=== PATIENT | male | born 1990 | race Caucasian/White ===

== ENCOUNTER 2017-11-06 20:17 | Emergency (ER) | payer BC ==
[2017-11-06 20:51] VITALS: BP 142/86
--- NOTE | 2017-11-06 21:04 | EDM.PDOC ---
ED HPI GENERAL MEDICAL PROBLEM - General Chief Complaint: ENT Problem Stated Complaint: EARACHE Time Seen by Provider: 11/06/17 21:04 History Limitations: Reports: No Limitations - History of Present Illness INITIAL COMMENTS - FREE TEXT/NARRATIVE: Nigel presents today for complaints of worsening right ear pain after going to the clinic today. He reports his ear canal is swollen and he has pain with radiation to the right side of his face. Treatments PRECISION DYER: Reports: Acetaminophen right ear pain Pain Score (Numeric/FACES): 8 - Related Data Allergies Allergy/AdvReac Type Severity Reaction Status Date / Time amoxicillin Allergy Rash Verified 11/06/17 20:52 Home Meds: Home Meds Citalopram [Citalopram HBr] 10 mg PO DAILY 10/04/14 [History] ALPRAZolam [Xanax] 0.5 mg PO DAILY PRN 06/28/16 [History] Past Medical History Psychiatric History: Reports: Anxiety Dermatologic History: Reports: Eczema - Infectious Disease History Infectious Disease History: Reports: Chicken Pox - Past Surgical History GI Surgical History: Reports: Hernia Repair/Other Social & Family History - Tobacco Use Smoking Status *Q: Never Smoker - Caffeine Use Caffeine Use: Reports: Coffee - Recreational Drug Use Recreational Drug Use: No ED ROS ENT - Review of Systems Review Of Systems: See Below Constitutional: Denies: Fever, Chills HEENT: Reports: Ear Pain, Hearing Loss, Other (Right ear pain and edema). Denies: Dental Pain, Ear Discharge, Eye Pain, Nose Pain, Sinus Problem, Throat Pain, Throat Swelling Respiratory: Denies: Shortness of Breath, Wheezing, Cough, Sputum Cardiovascular: Reports: No Symptoms Endocrine: Reports: No Symptoms GI/Abdominal: Reports: No Symptoms : Reports: No Symptoms Musculoskeletal: Reports: No Symptoms Skin: Reports: Other (Edema tp right ear canal) Neurological: Reports: No Symptoms Psychiatric: Reports: No Symptoms Hematologic/Lymphatic: Reports: No Symptoms Immunologic: Reports: No Symptoms ED EXAM, ENT - Physical Exam Exam: See Below Text/Narrative:: Nigel presents today for complaints of right sided ear pain with radiation to right side of face and head. He denies fever, chills, nausea, vomiting or other concerns. He reports he does suffer from eczema, has chronic pruritis of ear canals. Exam Limited By: No Limitations General Appearance: Alert, WD/WN, Mild Distress Eye Exam: Bilateral Eye: EOMI, Normal Inspection, PERRL Ears: Other (Left ear and TM normal, liriano with good reflection of light. Left ear has pain with movement of pinna, auricular tenderness, pain radiating to righ jaw, limited ROM to mouth. Significant edema to canal, no discharge noted. ) Nose: Normal Inspection, Normal Mucousa, No Blood Mouth/Throat: Normal Inspection, Normal Gums, Normal Lips, Normal Oropharynx, Normal Teeth Head: Atraumatic, Normocephalic Neck: Normal Inspection, Supple, Non-Tender, Full Range of Motion. No: Lymphadenopathy (R), Lymphadenopathy (L) Respiratory/Chest: No Respiratory Distress, Lungs Clear, Normal Breath Sounds, No Accessory Muscle Use, Chest Non-Tender Cardiovascular: Normal Peripheral Pulses, Regular Rate, Rhythm, No Edema, No Murmur, No Rub Back: Normal Inspection, Full Range of Motion. No: CVA Tenderness (R), CVA Tenderness (L) Extremities: Normal Inspection, Normal Range of Motion, Non-Tender, No Pedal Edema, Normal Capillary Refill Neurological: Alert, Oriented, CN II-XII Intact, Normal Cognition, Normal Gait, No Motor/Sensory Deficits Psychiatric: Normal Affect, Normal Mood Skin: Warm, Dry, Intact, Normal Color, No Rash Lymphatic: No Adenopathy ED ENT PROCEDURES - Additional/Other Procedure(s) Other (Free Text) Procedure(s): Ear wick placed to right ear, patient tolerated well. Cortisporin drops applied. Course - Vital Signs Last Recorded V/S: Last Vital Signs Temp 36.7 C 11/06/17 20:50 Pulse 101 H 11/06/17 20:50 Resp 17 11/06/17 20:50 BP 142/86 H 11/06/17 20:50 Pulse Ox 98 11/06/17 20:50 - Orders/Labs/Meds Meds: Medications Discontinued Medications Generic Name Dose Route Start Last Admin Trade Name Hossein PRN Reason Stop Dose Admin Hydrocodone Bitart/Acetaminophen 1 tab 11/06/17 21:13 11/06/17 21:23 [place] 325-5 Mg PO 11/06/17 21:14 1 tab ONETIME ONE Administration Departure - Departure Time of Disposition: 21:57 Disposition: Home, Self-Care 01 Condition: Good Clinical Impression: Otitis externa - Discharge Information Instructions: Otitis Externa, [id number] Referrals: Maicol Conteh PA [Primary Care Provider] - Forms: ED Department Discharge Additional Instructions: You have been evaluated and treated for otitis externa of the right ear. Use the cortisporin drops 3 drops as directed. Take ciprofloxacin 500mg by mouth as directed. Take acetaminophen and ibuprofen as needed for pain. You have been prescribed a prescription for tramadol 50mg, one tablet PO three times a day as needed #6 for uncontrolled pain. Keep the ear wick in place, it will fall out on its own. Do not put anything in your right ear. Follow up with your primary provider in 14 days for a recheck of your ear. Return to the emergency room for worsening, issues or concerns. - Assessment/Plan Assessment:: Otitis externa Plan: Patient evaluated and treated for otitis externa of the right ear. Use previously prescribed ear drops as directed. Add the cortisporin drops 3 drops as directed. Take ciprofloxacin 500mg by mouth as directed. Take acetaminophen and ibuprofen as needed for pain. Patient prescribed a prescription for tramadol 50mg, one tablet PO three times a day as needed #6 for uncontrolled pain. Keep the ear wick in place, it will fall out on its own. Do not put anything in right ear. Follow up with primary provider in 14 days for a recheck of ear. Return to the emergency room for worsening, issues or concerns.
[2017-11-06] MEDS ORDERED: Acetaminophen/HYDROcodone 325-5 MG Tab PO ONE (21:13)
== END 2017-11-06 22:08 | disposition home or self-care (01) ==
LOC: JP.ED 20:17
DX: H60.91 Unspecified otitis externa, right ear (principal); Z88.1 Allergy status to other antibiotic agents; Z79.899 Other long term (current) drug therapy; F41.9 Anxiety disorder, unspecified
CPT/HCPCS: 99283; A9270

== ENCOUNTER 2017-11-07 10:44 | Inpatient (IN) | payer BC ==
[2017-11-07] MEDS ORDERED: methylPREDNISolone Sodium Succinate 125 MG/2 ML SDV IVPUSH ONE ×2 (11:30→12:00)
[2017-11-07] MEDS ORDERED: Ketorolac 30 MG/ML SDV IVPUSH ONE ×2 (11:30→12:00)
[2017-11-07] MEDS ORDERED: cefTAZidime 1 GM in Sodium Chloride 0.9% 50 ML IV ONE ×2 (11:32→12:00)
[2017-11-07] MEDS ORDERED: Sodium Chloride 0.9% 1,000 ML IV SCH (11:45)
[2017-11-07] MEDS ORDERED: HYDROmorphone 0.5 MG/0.5 ML Syringe IVPUSH ONE (13:05)
--- NOTE | 2017-11-07 13:29 | PCM.HP ---
H&P History of Present Illness - General Date of Service: 11/07/17 Admit Problem/Dx: Admission Diagnosis/Problem Admission Diagnosis/Problem Cellulitis Source of Information: Patient, Provider, RN Notes Reviewed History Limitations: Reports: No Limitations - History of Present Illness Initial Comments - Free Text/Narative: Mr. Santiago is a 27-year-old gentleman who is admitted through the emergency department with severe otitis media of his right ear and associated cellulitis. He has a history of eczema and was scratching in his ear last week with a Q- tip. Since then has had some inflammation in the ear and progressive pain. He was seen and evaluated in the clinic and started on Cortisporin optic drops. Unfortunately despite this he had progression of symptoms and was seen and evaluated in the emergency department yesterday. He was given oral ciprofloxacin , but over the past 12 hours there is been progression of pain and inflammation surrounding the ear. On evaluation today the ear canal is totally closed off. Findings and evaluation reviewed with ENT on-call from [facility], they recommended IV antibiotics and consider MRI in a.m. if symptoms worsen. Right Ear Pain Score (Numeric/FACES): 5 - Related Data Allergies/Adverse Reactions: Allergies Allergy/AdvReac Type Severity Reaction Status Date / Time amoxicillin Allergy Rash Verified 11/07/17 11:05 Home Medications: Home Meds Citalopram [Citalopram HBr] 10 mg PO DAILY 10/04/14 [History] ALPRAZolam [Xanax] 0.5 mg PO DAILY PRN 06/28/16 [History] Ciprofloxacin HCl [Cipro] 500 mg PO BID 11/07/17 [History] Past Medical History Psychiatric History: Reports: Anxiety Dermatologic History: Reports: Eczema - Infectious Disease History Infectious Disease History: Reports: Chicken Pox - Past Surgical History GI Surgical History: Reports: Hernia Repair/Other Social & Family History - Tobacco Use Smoking Status *Q: Never Smoker - Caffeine Use Caffeine Use: Reports: Coffee - Recreational Drug Use Recreational Drug Use: No H&P Review of Systems - Review of Systems: Review Of Systems: See Below General: Reports: Fever, Chills, Weakness, Diaphoresis HEENT: Reports: Ear Pain. Denies: Dysphasia, Eye Pain, Headaches, Sore Throat Pulmonary: Reports: No Symptoms Cardiovascular: Reports: No Symptoms Gastrointestinal: Reports: No Symptoms Genitourinary: Reports: No Symptoms Musculoskeletal: Reports: No Symptoms Skin: Reports: No Symptoms Psychiatric: Reports: No Symptoms Neurological: Reports: No Symptoms Hematologic/Lymphatic: Reports: No Symptoms Immunologic: Reports: No Symptoms Exam - Exam Exam: See Below - Vital Signs Vital Signs: Last Vital Signs Temp 100.3 F 11/07/17 12:55 Pulse 102 H 11/07/17 12:55 Resp 16 11/07/17 12:55 BP 112/62 11/07/17 12:55 Pulse Ox 96 11/07/17 12:55 Weight: 222 lb 10.67 oz - Exam General: Alert, Oriented, Cooperative, Moderate Distress HEENT: Conjunctiva Clear, Mucosa Moist & [place], Normal Nasal Septum, Posterior Pharynx Clear, Pupils Equal, Other (Inflammation right face surrounding the ear , ear canal is totally closed off from inflammation) Neck: Supple, Trachea Midline, +2 Carotid Pulse wo Bruit Lungs: Clear to Auscultation, Normal Respiratory Effort Cardiovascular: Regular Rate, Regular Rhythm, Normal S1, Normal S2. No: Systolic Murmur, Diastolic Murmur GI/Abdominal Exam: Soft, Non-Tender, No Organomegaly, No Distention Back Exam: Normal Inspection, Full Range of Motion Extremities: Non-Tender, No Pedal Edema Skin: Warm, Dry, Intact Neurological: Cranial Nerves Intact, Strength Equal Bilateral, Normal Speech, Normal Tone, Sensation Intact. No: Focal Deficit Neuro Extensive - Mental Status: Alert, Oriented x3, Normal Mood/Affect, Normal Cognition, Memory Intact - Patient Data Lab Results Last 24 hrs: Laboratory Results - last 24 hr 11/07/17 11/07/17 Range/Units 12:16 12:16 WBC 14.1 H (4.5-11.0) K/uL RBC 5.35 (4.30-5.90) M/uL Hgb 15.8 H (12.0-15.0) g/dL Hct 46.0 (40.0-54.0) % MCV 86 (80-98) fL MCH 30 (27-31) pg MCHC 34 (32-36) % Plt Count 257 (150-400) K/uL Neut % (Auto) 89 H (36-66) % Lymph % (Auto) 4 L (24-44) % Bailey % (Auto) 8 H (2-6) % Eos % (Auto) 0 L (2-4) % Baso % (Auto) 0 (0-1) % Sodium 137 L (140-148) mmol/L Potassium 3.7 (3.6-5.2) mmol/L Chloride 102 (100-108) mmol/L Carbon Dioxide 24 (21-32) mmol/L Anion Gap 14.7 H (5.0-14.0) mmol/L BUN 15 (7-18) mg/dL Creatinine 1.1 (0.8-1.3) mg/dL Est Cr Clr Drug Dosing 115.20 mL/min Estimated GFR (MDRD) > 60 (>60) Glucose 91 (74-106) mg/dL Calcium 8.5 (8.5-10.1) mg/dL Result Diagrams: 11/07/17 12:16 11/07/17 12:16 *Q Meaningful Use (ADM) - VTE Risk Assess *Q Each Risk Factor Represents 1 Point: None Total Score 1 Point Risk Factors: 0 Each Risk Factor Represents 2 Points: None Total Score 2 Point Risk Factors: 0 Each Risk Factor Represents 3 Points: None Total Score 3 Point Risk Factors: 0 Each Risk Factor Represents 5 Points: None Total Score 5 Point Risk Factors: 0 Venous Thromboembolism Risk Factor Score *Q: 0 Problem List Initiated/Reviewed/Updated: Yes Orders Last 24hrs: Active Orders 24 hr Category Date Time Status Patient Status Manage Transfer [TRANSFER] Routine ADT 11/07/17 13:11 Active Sodium Chloride 0.9% [Normal Saline] 1,000 ml Med 11/07/17 11:45 Active IV ASDIRECTED Resuscitation Status Routine Resus Stat 11/07/17 13:15 Ordered Medication Orders Sodium Chloride (Normal Saline) 1,000 mls @ 250 mls/hr IV ASDIRECTED SAMANTHA Last Admin: 11/07/17 11:48 Dose: 250 mls/hr Assessment/Plan Comment:: ASSESSMENT AND PLAN CELLULITIS RIGHT FACE SECONDARY TO OTITIS EXTERNA-progressive symptoms despite appropriate therapy with drops and oral ciprofloxacin -IV fluids for hydration -Blood cultures pending -Pain medication as needed -Ceftazidime 1 g IV every 8 hours -Solu-Medrol 40 mg IV every 6 hours -Consider MRI in a.m. if no improvement or progression of symptoms MAINTENANCE ISSUES -DVT prophylaxis; not indicated -GI prophylaxis; not indicated -So catheter; not indicated -Nutrition; regular diet -Nicotine dependence; not required CODE STATUS-FULL CODE ADMISSION STATUS-patient will be admitted to inpatient status, expect at least a 2 night hospital stay for evaluation and management of problems as outlined above. At the time of this admission I do not reasonably expected evaluation and management of this problem will require more than a 96 hour hospital stay. DISPOSITION-anticipate discharge to home after the hospital stay. PRIMARY CARE PROVIDER-
[2017-11-07] MEDS ORDERED: Magnesium Hydroxide 400 MG/5 ML Susp 30 ML Cup PO PRN (13:51)
[2017-11-07] MEDS ORDERED: ALPRAZolam 0.5 MG Tab PO PRN (13:51)
[2017-11-07] MEDS ORDERED: Lactated Ringers 1,000 ML IV SCH (13:51)
[2017-11-07] MEDS ORDERED: Ondansetron 4 MG/2 ML SDV IV PRN (13:51)
[2017-11-07] MEDS ORDERED: Sodium Chloride 0.9% 10 ML Syringe FLUSH PRN (13:51)
[2017-11-07] MEDS: Acetaminophen 325 MG Tab PO PRN (15:14)
[2017-11-07] MEDS: Ciprofloxacin 0.3% Ophth Soln 5 ML Bottle EARRT SCH ×2 (16:05→20:12)
[2017-11-07] MEDS: HYDROmorphone 0.5 MG/0.5 ML Syringe IVPUSH PRN ×2 (17:00→22:38)
[2017-11-07] MEDS: methylPREDNISolone Sodium Succinate 40 MG/1 ML SDV IVPUSH SCH (17:58)
[2017-11-07] MEDS: Ibuprofen 600 MG Tab PO PRN (20:10)
[2017-11-07] MEDS: Lactated Ringers 1,000 ML IV SCH (20:11)
[2017-11-07] MEDS: cefTAZidime 1 GM in Sodium Chloride 0.9% 50 ML IV SCH (20:16)
[2017-11-07] MEDS: Citalopram 10 MG Tab PO SCH (22:35)
[2017-11-08] MEDS: Ciprofloxacin 0.3% Ophth Soln 5 ML Bottle EARRT SCH ×6 (00:11→19:43)
[2017-11-08] MEDS: methylPREDNISolone Sodium Succinate 40 MG/1 ML SDV IVPUSH SCH ×3 (00:12→11:18)
[2017-11-08] MEDS: cefTAZidime 1 GM in Sodium Chloride 0.9% 50 ML IV SCH ×3 (04:07→19:43)
[2017-11-08] MEDS: Lactated Ringers 1,000 ML IV SCH (04:12)
[2017-11-08] MEDS: Ibuprofen 600 MG Tab PO PRN ×3 (04:22→19:59)
[2017-11-08] MEDS: HYDROmorphone 0.5 MG/0.5 ML Syringe IVPUSH PRN (04:23)
[2017-11-08] MEDS: oxyCODONE 5 MG Tab PO PRN ×3 (07:30→19:58)
[2017-11-08] MEDS ORDERED: Citalopram 10 MG Tab PO SCH (09:00)
[2017-11-08] MEDS: Acetaminophen 325 MG Tab PO PRN (09:43)
--- NOTE | 2017-11-08 11:59 | PCM.PN ---
- General Info Date of Service: 11/08/17 Functional Status: Reports: Pain Controlled, Tolerating Diet - Review of Systems General: Reports: Fever HEENT: Reports: Ear Pain Systems Review Comment:: There were no acute events overnight. Right ear pain has diminished compared to yesterday. Swelling and erythema have improved. He did have low-grade fevers overnight but no high temperatures. White blood cell count is up a little today. In general he feels quite a bit better. - Patient Data Vitals - Most Recent: Last Vital Signs Temp 37.0 C 11/08/17 11:14 Pulse 80 11/08/17 11:14 Resp 14 11/08/17 11:14 BP 107/59 L 11/08/17 11:14 Pulse Ox 97 11/08/17 11:14 Weight - Most Recent: 101.968 kg I&O - Last 24 Hours: Intake & Output 11/07/17 11/08/17 11/08/17 22:59 06:59 14:59 Intake Total 237 1600 850 Output Total 400 850 450 Balance -163 750 400 Lab Results Last 24 Hours: Laboratory Results - last 24 hr 11/07/17 11/07/17 11/08/17 Range/Units 12:16 12:16 05:41 WBC 14.1 H 18.4 H (4.5-11.0) K/uL RBC 5.35 4.88 (4.30-5.90) M/uL Hgb 15.8 H 14.2 (12.0-15.0) g/dL Hct 46.0 42.6 (40.0-54.0) % MCV 86 87 (80-98) fL MCH 30 29 (27-31) pg MCHC 34 33 (32-36) % Plt Count 257 239 (150-400) K/uL Neut % (Auto) 89 H 96 H (36-66) % Lymph % (Auto) 4 L 2 L (24-44) % Sullivan % (Auto) 8 H 2 (2-6) % Eos % (Auto) 0 L 0 L (2-4) % Baso % (Auto) 0 0 (0-1) % Sodium 137 L (140-148) mmol/L Potassium 3.7 (3.6-5.2) mmol/L Chloride 102 (100-108) mmol/L Carbon Dioxide 24 (21-32) mmol/L Anion Gap 14.7 H (5.0-14.0) mmol/L BUN 15 (7-18) mg/dL Creatinine 1.1 (0.8-1.3) mg/dL Est Cr Clr Drug Dosing 115.20 mL/min Estimated GFR (MDRD) > 60 (>60) Glucose 91 (74-106) mg/dL Calcium 8.5 (8.5-10.1) mg/dL 11/08/17 Range/Units 05:41 WBC (4.5-11.0) K/uL RBC (4.30-5.90) M/uL Hgb (12.0-15.0) g/dL Hct (40.0-54.0) % MCV (80-98) fL MCH (27-31) pg MCHC (32-36) % Plt Count (150-400) K/uL Neut % (Auto) (36-66) % Lymph % (Auto) (24-44) % Sullivan % (Auto) (2-6) % Eos % (Auto) (2-4) % Baso % (Auto) (0-1) % Sodium 139 L (140-148) mmol/L Potassium 4.1 (3.6-5.2) mmol/L Chloride 106 (100-108) mmol/L Carbon Dioxide 22 (21-32) mmol/L Anion Gap 15.1 H (5.0-14.0) mmol/L BUN 15 (7-18) mg/dL Creatinine 0.9 (0.8-1.3) mg/dL Est Cr Clr Drug Dosing 140.81 mL/min Estimated GFR (MDRD) > 60 (>60) Glucose 157 H (74-106) mg/dL Calcium 8.4 L (8.5-10.1) mg/dL Med Orders - Current: Current Medications Acetaminophen (Tylenol) 650 mg PO Q4H PRN PRN Reason: Pain (Mild 1-3)/fever Last Admin: 11/08/17 09:43 Dose: 650 mg Alprazolam (Xanax) 0.5 mg PO DAILY PRN PRN Reason: Sleep Ciprofloxacin (Ciloxan 0.3% Ophth Soln) 0 ml EARRT Q4H SAMANTHA Last Admin: 11/08/17 11:17 Dose: 2 drop Citalopram Hydrobromide (Celexa) 10 mg PO BEDTIME [facility] Last Admin: 11/07/17 22:35 Dose: 10 mg Hydromorphone HCl (Dilaudid) 0.5 mg IVPUSH Q2H PRN PRN Reason: Pain Last Admin: 11/08/17 04:23 Dose: 0.5 mg Ceftazidime 1 gm/ Sodium (Chloride) 50 mls @ 100 mls/hr IV Q8H [facility] Last Admin: 11/08/17 11:46 Dose: 100 mls/hr Ibuprofen (Motrin) 600 mg PO Q6H PRN PRN Reason: Pain/Fever Last Admin: 11/08/17 04:22 Dose: 600 mg Magnesium Hydroxide (Milk Of Magnesia) 30 ml PO Q12H PRN PRN Reason: Constipation Ondansetron HCl (Zofran) 4 mg IV Q4H PRN PRN Reason: Nausea/Vomiting Oxycodone HCl (Oxycodone) 5 mg PO Q4H PRN PRN Reason: Pain (moderate 4-6) Last Admin: 11/08/17 07:30 Dose: 5 mg Prednisone (Prednisone) 20 mg PO BIDAC [facility] Senna/Docusate Sodium (Senna Plus) 1 tab PO BID PRN PRN Reason: Constipation Sodium Chloride (Saline Flush) 10 ml FLUSH ASDIRECTED PRN PRN Reason: Keep Vein Open Discontinued Medications Hydromorphone HCl (Dilaudid) 0.5 mg IVPUSH ONETIME ONE Stop: 11/07/17 13:06 Last Admin: 11/07/17 13:21 Dose: 0.5 mg Ceftazidime 1 gm/ Sodium (Chloride) 50 mls @ 100 mls/hr IV ONETIME ONE Stop: 11/07/17 12:29 Last Admin: 11/07/17 11:49 Dose: 100 mls/hr Sodium Chloride (Normal Saline) 1,000 mls @ 250 mls/hr IV ASDIRECTED [facility] Last Admin: 11/07/17 11:48 Dose: 250 mls/hr Lactated Ringer's (Ringers, Lactated) 1,000 mls @ 250 mls/hr IV ASDIRECTED [facility] Stop: 11/07/17 17:52 Lactated Ringer's (Ringers, Lactated) 1,000 mls @ 125 mls/hr IV ASDIRECTED [facility] Last Admin: 11/08/17 04:12 Dose: 125 mls/hr Ketorolac Tromethamine (Toradol) 30 mg IVPUSH ONETIME ONE Stop: 11/07/17 12:01 Last Admin: 11/07/17 11:52 Dose: 30 mg Methylprednisolone Sodium Succinate (Solu-Medrol) 125 mg IVPUSH ONETIME ONE Stop: 11/07/17 12:01 Last Admin: 11/07/17 11:49 Dose: 125 mg Methylprednisolone Sodium Succinate (Solu-Medrol) 40 mg IVPUSH Q6H [facility] Last Admin: 11/08/17 11:18 Dose: 40 mg - Exam Quality Assessment: No: Supplemental Oxygen General: Alert, Oriented, Cooperative, No Acute Distress HEENT: Mucous Membr. Moist/[place], Other (right ear is mildly swollen externally. Ear canal is patent but has significant swelling. No redness. Mild warmth of ear and surrounding area. ) Neck: Supple Lungs: Normal Respiratory Effort Psy/Mental Status: Alert, Normal Affect - Problem List Review Problem List Initiated/Reviewed/Updated: Yes - My Orders Last 24 Hours: My Active Orders 11/08/17 11:17 Convert IV to Saline Lock [OM.PC] Routine 11/08/17 16:30 predniSONE 20 mg PO BIDAC 11/09/17 05:00 CBC W/O DIFF,HEMOGRAM [HEME] Timed (1) - Plan Plan:: ASSESSMENT AND PLAN CELLULITIS RIGHT FACE SECONDARY TO OTITIS EXTERNA - progressive symptoms despite appropriate therapy with drops and oral ciprofloxacin as an outpatient but significant improvement overnight following admission. -Pain medication as needed -Ceftazidime 1 g IV every 8 hours -Transition steroids to prednisone -Consider MRI if no improvement or progression of symptoms MAINTENANCE ISSUES -DVT prophylaxis; not indicated -GI prophylaxis; not indicated -So catheter; not indicated -Nutrition; regular diet DISPOSITION - anticipate discharge to home after the hospital stay. Billy Chan M.D.
[2017-11-08] MEDS: predniSONE 20 MG Tab PO SCH (15:30)
[2017-11-08] MEDS: Citalopram 10 MG Tab PO SCH (20:00)
[2017-11-09] MEDS: Ciprofloxacin 0.3% Ophth Soln 5 ML Bottle EARRT SCH ×3 (00:37→09:07)
[2017-11-09] MEDS: cefTAZidime 1 GM in Sodium Chloride 0.9% 50 ML IV SCH ×2 (04:00→12:26)
[2017-11-09] MEDS: oxyCODONE 5 MG Tab PO PRN ×2 (07:37→12:25)
[2017-11-09] MEDS: Ibuprofen 600 MG Tab PO PRN (07:38)
[2017-11-09] MEDS: predniSONE 20 MG Tab PO SCH (07:40)
--- NOTE | 2017-11-09 11:48 | PCM.DCSUM1 ---
Discharge Summary - Hospital Course Brief History: 27-year-old male with history of eczema involving his auditory canals who presented with severe pain, redness and swelling of his right ear that was worsening despite outpatient antibiotic therapy. He was admitted for management of severe right-sided otitis externa. - Discharge Data Discharge Date: 11/09/17 Discharge Disposition: Home, Self-Care 01 Condition: Good - Discharge Diagnosis/Problem(s) (1) Otitis externa SNOMED Code(s): 0142889 ICD Code: H60.90 - UNSPECIFIED OTITIS EXTERNA, UNSPECIFIED EAR Status: Acute Qualifiers: Otitis externa type: other infective Chronicity: acute Laterality: right Qualified Code(s): H60.391 - Other infective otitis externa, right ear (2) Cellulitis of face SNOMED Code(s): 938206414 ICD Code: L03.211 - CELLULITIS OF FACE Status: Acute - Patient Summary/Data Hospital Course: Dandre presented to the emergency room with progressive right ear pain and swelling despite outpatient antibiotic therapy. Workup in the emergency room revealed a mild leukocytosis as well as evidence for significant swelling of the auditory canal and external ear. There is also concern for cellulitis surrounding the right ear. inventory specialist manager was consulted from [place] and he recommended IV antibiotics and an MRI if condition did not improve or if it got worse. He was admitted to the hospital and started on Ceftazidime as well as antibiotic drops placed in the auditory canal. overnight following admission his pain and swelling both improved. He did have low-grade fevers following admission. His white blood cell count did bump slightly but this was thought to possibly be related to the IV steroids. We elected to continue IV antibiotics for a second night to monitor for ongoing improvement given the severity of his infection at the time of presentation. On the second morning of admission which was the day of discharge the patient reported some increase in pain that morning but it had been improving after he had been up and about. He thought the swelling was a little bit worse but in general was feeling better. My examination suggested that the ear was doing much better. There was an area anterior to the ear over the jaw which was slightly more swollen than the day before but the redness, warmth and swelling had also improved significantly. His white blood cell count is stable but still mildly elevated. He has not had any fevers in the past 24 hours. I do believe he is safe for outpatient management at this time. We elected to utilize ciprofloxacin as well as cefdinir to cover the cellulitis. I did transition him to Tobradex eardrops which she will place in the auditory canal. I encouraged him to contact me with questions or concerns after hospital discharge. I don't believe he needs a referral to ENT at this time given his significant clinical improvement over the past 48 hours. We did not complete an MRI because of the above-mentioned clinical improvement. - Patient Instructions Diet: Regular Diet as Tolerated Activity: As Tolerated Driving: Do Not Drive (if taking pills ) Showering/Bathing: May Shower Notify Provider of: Fever, Increased Pain, Nausea and/or Vomiting Other/Special Instructions: 1. You were in the hospital for management of infection involving your right ear, ear canal as well as cellulitis surrounding the ear. Your condition has been improving with current antibiotic therapy. I recommend ongoing antibiotic therapy as listed below: --cefdinir 300 mg, take one cap twice daily for seven doses, your first dose is due tonight (new prescription). --ciprofloxacin 500 mg, take 1 tablet twice daily for 7 doses, your next dose is due tonight (existing prescription). --Tobrex eardrops, place 4 drops in your right ear 4 times daily until the bottle is empty. 2. To help control the pain associated with the infection I would recommend alternating ibuprofen 600 mg and acetaminophen 650 mg. You may take each of these medications up to 4 times daily as needed for pain. If you have severe pain you may utilize the small quantity of oxycodone provided. 3. If your condition does not continue to improve we may need to consider an MRI and/ or referral to an wave solder offbearer. 4. Please seek medical attention if you develop fever greater than 101, you develop severe pain in the right ear or if you have increasing redness, warmth or swelling of the right ear. - Discharge Plan Prescriptions/Med Rec: Cefdinir 300 mg PO BID #7 capsule Dexamethasone/Tobramycin [Tobradex Ophth Susp] 4 ml EARRT QID #1 bottle oxyCODONE 5 mg PO Q4H PRN #10 tablet PRN Reason: Pain (Moderate 4-6) Home Medications: Home Meds Citalopram [Citalopram HBr] 10 mg PO DAILY 10/04/14 [History] ALPRAZolam [Xanax] 0.5 mg PO DAILY PRN 06/28/16 [History] Ciprofloxacin HCl [Cipro] 500 mg PO BID 11/07/17 [History] Cefdinir 300 mg PO BID #7 capsule 11/09/17 [Rx] Dexamethasone/Tobramycin [Tobradex Ophth Susp] 4 ml EARRT QID #1 bottle [Rx] oxyCODONE 5 mg PO Q4H PRN #10 tablet 11/09/17 [Rx] Patient Handouts: Cefdinir capsules, Otitis Externa Referrals: PCP,None [Primary Care Provider] - (f/u as needed if symptoms do not continue to get better over the next few days) - Discharge Summary/Plan Comment DC Time >30 min.: No (25) - Patient Data Vitals - Most Recent: Last Vital Signs Temp 36.9 C 11/09/17 07:05 Pulse 74 11/09/17 07:05 Resp 16 11/09/17 07:05 BP 119/68 11/09/17 07:05 Pulse Ox 99 11/09/17 07:05 Weight - Most Recent: 101.968 kg I&O - Last 24 hours: Intake & Output 11/08/17 11/09/17 11/09/17 22:59 06:59 14:59 Intake Total 400 940 Balance 400 940 Lab Results - Last 24 hrs: Laboratory Results - last 24 hr 11/09/17 Range/Units 05:00 WBC 18.9 H (4.5-11.0) K/uL RBC 4.58 (4.30-5.90) M/uL Hgb 13.3 (12.0-15.0) g/dL Hct 40.2 (40.0-54.0) % MCV 88 (80-98) fL MCH 29 (27-31) pg MCHC 33 (32-36) % Plt Count 242 (150-400) K/uL MARTINE Results - Last 24 hrs: Microbiology 11/07/17 14:10 Aerobic Blood Culture - Preliminary Blood - Arm, Right NO GROWTH AFTER 1 DAY Anaerobic Blood Culture - Preliminary NO GROWTH AFTER 1 DAY 11/07/17 14:00 Aerobic Blood Culture - Preliminary Blood - Arm, Left NO GROWTH AFTER 1 DAY Anaerobic Blood Culture - Preliminary NO GROWTH AFTER 1 DAY Med Orders - Current: Current Medications Acetaminophen (Tylenol) 650 mg PO Q4H PRN PRN Reason: Pain (Mild 1-3)/fever Last Admin: 11/08/17 09:43 Dose: 650 mg Alprazolam (Xanax) 0.5 mg PO DAILY PRN PRN Reason: Sleep Citalopram Hydrobromide (Celexa) 10 mg PO BEDTIME [facility] Last Admin: 11/08/17 20:00 Dose: 10 mg Hydromorphone HCl (Dilaudid) 0.5 mg IVPUSH Q2H PRN PRN Reason: Pain Last Admin: 11/08/17 04:23 Dose: 0.5 mg Ceftazidime 1 gm/ Sodium (Chloride) 50 mls @ 100 mls/hr IV Q8H [facility] Last Admin: 11/09/17 04:00 Dose: 100 mls/hr Ibuprofen (Motrin) 600 mg PO Q6H PRN PRN Reason: Pain/Fever Last Admin: 11/09/17 07:38 Dose: 600 mg Magnesium Hydroxide (Milk Of Magnesia) 30 ml PO Q12H PRN PRN Reason: Constipation Ondansetron HCl (Zofran) 4 mg IV Q4H PRN PRN Reason: Nausea/Vomiting Oxycodone HCl (Oxycodone) 5 mg PO Q4H PRN PRN Reason: Pain (moderate 4-6) Last Admin: 11/09/17 07:37 Dose: 5 mg Prednisone (Prednisone) 20 mg PO BIDAC [facility] Last Admin: 11/09/17 07:40 Dose: 20 mg Senna/Docusate Sodium (Senna Plus) 1 tab PO BID PRN PRN Reason: Constipation Sodium Chloride (Saline Flush) 10 ml FLUSH ASDIRECTED PRN PRN Reason: Keep Vein Open Tobramycin/Dexamethasone (Tobradex Ophth Susp) 0 ml EARRT QID [facility] Discontinued Medications Ciprofloxacin (Ciloxan 0.3% Ophth Soln) 0 ml EARRT Q4H [facility] Last Admin: 11/09/17 09:07 Dose: 2 drop Hydromorphone HCl (Dilaudid) 0.5 mg IVPUSH ONETIME ONE Stop: 11/07/17 13:06 Last Admin: 11/07/17 13:21 Dose: 0.5 mg Ceftazidime 1 gm/ Sodium (Chloride) 50 mls @ 100 mls/hr IV ONETIME ONE Stop: 11/07/17 12:29 Last Admin: 11/07/17 11:49 Dose: 100 mls/hr Sodium Chloride (Normal Saline) 1,000 mls @ 250 mls/hr IV ASDIRECTED [facility] Last Admin: 11/07/17 11:48 Dose: 250 mls/hr Lactated Ringer's (Ringers, Lactated) 1,000 mls @ 250 mls/hr IV ASDIRECTED [facility] Stop: 11/07/17 17:52 Lactated Ringer's (Ringers, Lactated) 1,000 mls @ 125 mls/hr IV ASDIRECTED [facility] Last Admin: 11/08/17 04:12 Dose: 125 mls/hr Ketorolac Tromethamine (Toradol) 30 mg IVPUSH ONETIME ONE Stop: 11/07/17 12:01 Last Admin: 11/07/17 11:52 Dose: 30 mg Methylprednisolone Sodium Succinate (Solu-Medrol) 125 mg IVPUSH ONETIME ONE Stop: 11/07/17 12:01 Last Admin: 11/07/17 11:49 Dose: 125 mg Methylprednisolone Sodium Succinate (Solu-Medrol) 40 mg IVPUSH Q6H [facility] Last Admin: 11/08/17 11:18 Dose: 40 mg - Exam Quality Assessment: Denies: Supplemental Oxygen General: Reports: Alert, Oriented, Cooperative, No Acute Distress HEENT: Reports: Mucous Membr. Moist/Lester, Other (Mild swelling of auditory canal but the canal is patent. There is no erythema or drainage involving the ear. No evidence for active eczema. Minimal swelling anterior to right ear. No redness, warmth or swelling involving the ear or the area immediately adjacent to the year) Lungs: Reports: Normal Respiratory Effort *Q Meaningful Use (DIS) - VTE *Q VTE Pharmacological Contraindications *Q: Not Candidate LT Anticoag
[2017-11-09] MEDS ORDERED: Dexamethasone/Tobramycin 0.1-0.3% Ophth Susp 2.5 ML Bottle EARRT SCH (12:00)
[2017-11-09 12:14] VITALS: BP 122/71
== END 2017-11-09 13:29 | disposition home or self-care (01) | DRG 115 ==
LOC: JP.ED 10:44 → JP.MS 13:31
PROVIDERS: ADMIT Hospitalist; ATTEND Internal Medicine
DX: H60.8X1 Other otitis externa, right ear (principal); L03.211 Cellulitis of face; F41.9 Anxiety disorder, unspecified; L30.8 Other specified dermatitis; Z88.1 Allergy status to other antibiotic agents
CPT/HCPCS: 36415; 80048; 85025; 85027; 87040; 96361; 96365; 96375; 99284-25; A9270-GY; J0713; J1170; J1885; J2920; J2930; J7040; J7050; J7120

== ENCOUNTER 2020-02-29 13:45 | Emergency (ER) | payer BC ==
[2020-02-29] MEDS ORDERED: Alum Hydrox/Mag Hydrox/Simeth 15 ML, Lidocaine 2% 15 ML PO ONE ×2 (14:46)
--- NOTE | 2020-02-29 15:03 | EDM.PDOC ---
ED HPI GENERAL MEDICAL PROBLEM - General Chief Complaint: Chest Pain Stated Complaint: CHEST PAIN Time Seen by Provider: 02/29/20 15:02 - History of Present Illness INITIAL COMMENTS - FREE TEXT/NARRATIVE: Patient presents to the emergency department with epigastric pain over the past few days on and off. He says he has been under little bit of stress lately and he is on a little bit of a different diet than he is used to. He denies any shortness of breath and he denies any cough or fever or chills. He denies any exertional chest pains. He says the pain is in the middle of his chest and it comes and goes. Chest Pain Score (Numeric/FACES): 4 - Related Data Allergies Allergy/AdvReac Type Severity Reaction Status Date / Time amoxicillin Allergy Rash Verified 02/29/20 14:06 Home Meds: Home Meds Citalopram [Citalopram HBr] 10 mg PO DAILY 10/04/14 [History] Cetirizine [ZyrTEC] 10 mg PO DAILY 02/29/20 [History] Past Medical History HEENT History: Reports: Allergic Rhinitis Psychiatric History: Reports: Anxiety Dermatologic History: Reports: Eczema - Infectious Disease History Infectious Disease History: Reports: Chicken Pox - Past Surgical History GI Surgical History: Reports: Hernia Repair/Other Social & Family History - Family History Family Medical History: Noncontributory - Tobacco Use Smoking Status *Q: Never Smoker - Caffeine Use Caffeine Use: Reports: Coffee - Alcohol Use Days Per Week of Alcohol Use: 5 Number of Drinks Per Day: 3 Total Drinks Per Week: 15 - Recreational Drug Use Recreational Drug Use: No ED ROS GENERAL - Review of Systems Review Of Systems: Comprehensive ROS is negative, except as noted in HPI. ED EXAM, GENERAL - Physical Exam Exam: See Below Exam Limited By: No Limitations General Appearance: Alert Nose: Normal Inspection Neck: Normal Inspection Respiratory/Chest: No Respiratory Distress Cardiovascular: Normal Peripheral Pulses GI/Abdominal: Normal Bowel Sounds Back Exam: Normal Inspection Extremities: Normal Inspection Neurological: Alert, Oriented Skin Exam: Warm Course - Vital Signs Text/Narrative:: Patient did well here in the ER is a normal EKG and normal troponin and I feel since his pain is been going on a few days I feel comfortable sending him out with instructions for nonspecific chest pain he is to follow-up with family doctor and if this continues get an outpatient stress test Last Recorded V/S: Last Vital Signs Temp 97 F 02/29/20 14:02 Pulse 97 02/29/20 15:13 Resp 21 H 02/29/20 15:13 BP 129/85 02/29/20 15:13 Pulse Ox 97 02/29/20 15:13 - Orders/Labs/Meds Orders: Active Orders 24 hr Category Date Time Status EKG Documentation Completion [RC] ASDIRECTED Care 02/29/20 14:46 Active EKG 12 Lead [EK] Routine Ther 02/29/20 14:46 Ordered Labs: Laboratory Tests 02/29/20 Range/Units 14:55 Troponin I < 0.017 (0.000-0.056) ng/mL Meds: Medications Discontinued Medications Generic Name Dose Route Start Last Admin Trade Name Freq PRN Reason Stop Dose Admin Al Hydroxide/Mg Hydroxide 15 0 ml 02/29/20 14:46 02/29/20 14:55 ml/ Lidocaine HCl 15 ml PO 02/29/20 14:47 30 ml ONETIME ONE Administration Departure - Departure Time of Disposition: 15:26 Disposition: Home, Self-Care 01 Condition: Fair Clinical Impression: Atypical chest pain - Discharge Information Instructions: Nonspecific Chest Pain, Adult Referrals: PCP,None [Primary Care Provider] - Forms: ED Department Discharge Sepsis Event Note (ED) - Evaluation Sepsis Screening Result: No Definite Risk - Focused Exam Vital Signs: Vital Signs Temp Pulse Resp BP Pulse Ox 02/29/20 15:13 97 21 H 129/85 97 02/29/20 14:29 89 14 118/83 95 02/29/20 14:02 97 F 106 H 18 114/87 96 - My Orders Last 24 Hours: My Active Orders 02/29/20 14:46 EKG Documentation Completion [RC] ASDIRECTED EKG 12 Lead [EK] Routine - Assessment/Plan Last 24 Hours: My Active Orders 02/29/20 14:46 EKG Documentation Completion [RC] ASDIRECTED EKG 12 Lead [EK] Routine
[2020-02-29 15:14] VITALS: BP 129/85; PULSE 97
== END 2020-02-29 15:43 | disposition home or self-care (01) ==
LOC: JP.ED 13:45
DX: R07.89 Other chest pain (principal); F41.9 Anxiety disorder, unspecified; Z88.1 Allergy status to other antibiotic agents; Z79.899 Other long term (current) drug therapy
CPT/HCPCS: 36415; 84484; 93005; 99285; A9270; 93010

== ENCOUNTER 2020-06-01 16:06 | Emergency (ER) | payer BC ==
[2020-06-01 16:36] VITALS: BP 128/85; PULSE 88
--- NOTE | 2020-06-01 16:42 | EDM.PDOC ---
ED HPI GENERAL MEDICAL PROBLEM - General Chief Complaint: Laceration Stated Complaint: CUT FINGER KNIFER Time Seen by Provider: 06/01/20 16:32 Source of Information: Reports: Patient History Limitations: Reports: No Limitations - History of Present Illness INITIAL COMMENTS - FREE TEXT/NARRATIVE: Patient presents for evaluation of an injury to the tip of the right ring finger today at home. He had been filleting a fish and was washing up items in the sink including the fillet knife. He inadvertently ran the tip of the right ring finger over the edge of the blade and sustained a small partial flap avulsion injury to the tip of the finger while in the soapy water. He irrigated it with running water at home and then came here for further evaluation. Bleeding is controlled at this time. He is up-to-date on his tetanus status as a result of a work-related injury 2 years ago. No other injury sustained today. Onset: Today, Sudden Location: Reports: Upper Extremity, Right Quality: Reports: Burning Severity: Mild Improves with: Reports: None Worsens with: Reports: Movement Context: Reports: Trauma - Related Data Allergies Allergy/AdvReac Type Severity Reaction Status Date / Time amoxicillin Allergy Rash Verified 06/01/20 16:28 Home Meds: Home Meds Citalopram [Citalopram HBr] 10 mg PO DAILY 10/04/14 [History] Past Medical History HEENT History: Reports: Allergic Rhinitis Psychiatric History: Reports: Anxiety Dermatologic History: Reports: Eczema - Infectious Disease History Infectious Disease History: Reports: Chicken Pox - Past Surgical History GI Surgical History: Reports: Hernia Repair/Other Social & Family History - Family History Family Medical History: No Pertinent Family History - Tobacco Use Tobacco Use Status *Q: Never Tobacco User - Caffeine Use Caffeine Use: Reports: Coffee ED ROS GENERAL - Review of Systems Review Of Systems: Comprehensive ROS is negative, except as noted in HPI. ED EXAM, SKIN/RASH Exam: See Below Exam Limited By: No Limitations General Appearance: Alert, No Apparent Distress Cardiovascular: Regular Rate, Rhythm Skin: Wound/Incision (There is a slightly longer than 1 cm partial flap avulsion on the tip of the right index finger. The flap is adherent to the rest of the finger at this time and is not bleeding. He has full flexion extension function of the fingers.) Course - Vital Signs Last Recorded V/S: Last Vital Signs Temp 36.9 C 06/01/20 17:05 Pulse 88 06/01/20 17:05 Resp 16 06/01/20 17:05 BP 128/85 06/01/20 17:05 Pulse Ox 98 06/01/20 17:05 - Re-Assessments/Exams Free Text/Narrative Re-Assessment/Exam: 06/01/20 17:51 I discussed with him that I felt the best means of addressing this wound would be with Steri-Strip closures. He agrees to proceed. The skin was prepped with Mastisol. Once it dried, three 1/4 inch Steri-Strips were applied in a crossed fashion from one side of the finger over the flap and down the other side. There was excellent coverage of the laceration. He should leave those in place hopefully for 5 days and possibly longer. He should keep the area dry. If the tips begin to curl he can trim them with a nail clipper. He can apply new Steri-Strips if need be if these current ones come off but after 1 week the majority of the healing for this wound will have been completed. Watch for signs of infection. He does not need tetanus immunization boosting. Return to ER if feeling worse in any way. Departure - Departure Time of Disposition: 17:00 Disposition: Home, Self-Care 01 Clinical Impression: Laceration of finger Qualifiers: Encounter type: initial encounter Finger: ring finger Damage to nail status: without damage Foreign body presence: without foreign body Laterality: right Qualified Code(s): S61.214A - Laceration without foreign body of right ring finger without damage to nail, initial encounter - Discharge Information Instructions: Laceration Care, Adult, [id number] Referrals: PCP,None [Primary Care Provider] - Forms: ED Department Discharge Additional Instructions: Keep the Steri-Strips on and dry to the extent possible for the next 5 to 7 days. If the corners begin to turn up, you could trim them with a nail clipper. If 1 or more of the Steri-Strips comes off completely, you could reapply with the remaining strips in the packet given to you. Watch for signs of infection which would be redness or pus drainage or red streaks extending up the finger and into the hand however the way the cut happened your risk of infection is extremely low. If feeling worse in any way return to ER. Sepsis Event Note (ED) - Focused Exam Vital Signs: Vital Signs Temp Pulse Resp BP Pulse Ox 06/01/20 17:05 36.9 C 88 16 128/85 98 06/01/20 16:34 36.9 C 88 16 128/85 98
== END 2020-06-01 17:31 | disposition home or self-care (01) ==
LOC: JP.ED 16:06
DX: S61.214A Laceration without foreign body of right ring finger without damage to nail, initial encounter (principal); F41.9 Anxiety disorder, unspecified; Z79.899 Other long term (current) drug therapy; Z88.1 Allergy status to other antibiotic agents; W26.0XXA Contact with knife, initial encounter; Y92.009 Unspecified place in unspecified non-institutional (private) residence as the place of occurrence of the external cause
CPT/HCPCS: 99283

== ENCOUNTER 2020-09-29 10:43 | Emergency (ER) | payer BC ==
[2020-09-29 10:53] VITALS: BP 142/76; PULSE 82
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
--- NOTE | 2020-09-29 11:53 | CRLCR ---
INDICATION: Injury. Left knee pain. COMPARISON: None. TECHNIQUE: Left knee 3 views. FINDINGS: No acute fracture. Alignment is within normal limits. Joint spaces are maintained. Joint effusion on lateral view. Patellar tendon insertion enthesophytes at the tibial tubercle. IMPRESSION: Joint effusion. Otherwise no acute osseous abnormality. Dictated by Nba Akhtar MD @ Sep 29 2020 11:49AM Signed by Dr. Nba Akhtar @ Sep 29 2020 11:52AM
== END 2020-09-29 12:17 | disposition home or self-care (01) ==
LOC: JP.ED 10:43
DX: S80.02XA Contusion of left knee, initial encounter (principal); Z88.0 Allergy status to penicillin; W22.8XXA Striking against or struck by other objects, initial encounter
CPT/HCPCS: 73562-LT; 99283-25

== ENCOUNTER 2021-06-26 05:41 | Day surgery (SDC) | payer BC ==
[2021-06-26] MEDS ORDERED: Acetaminophen 500 MG Tab PO ONE (06:15)
[2021-06-26] MEDS ORDERED: Ondansetron 4 MG/2 ML SDV ONE ×2 (06:29→06:55)
[2021-06-26] MEDS ORDERED: Midazolam 1 MG/ML 2 ML SDV ONE ×2 (06:29→06:54)
[2021-06-26] MEDS ORDERED: Rocuronium 50 MG/5 ML Vial ONE (06:29)
[2021-06-26] MEDS ORDERED: fentaNYL 250 MCG/5 ML SDV ONE (06:29)
[2021-06-26] MEDS ORDERED: Dexamethasone 4 MG/ML SDV ONE ×2 (06:29→07:55)
[2021-06-26] MEDS ORDERED: Propofol 200 MG/20 ML SDV ONE ×4 (06:29→08:32)
[2021-06-26] MEDS ORDERED: Glycopyrrolate 0.2 MG/ML 5 ML MDV ONE (06:29)
[2021-06-26] MEDS ORDERED: Dextrose 5%-Lactated Ringers 1,000 ML IV SCH (06:30)
[2021-06-26] MEDS ORDERED: Lidocaine 1% with EPINEPHrine 1:100,000 50 ML MDV ONE (06:37)
[2021-06-26] MEDS ORDERED: Bupivacaine 0.5% 50 ML MDV ONE (06:37)
[2021-06-26] MEDS ORDERED: Bupivacaine 0.5%/EPINEPHrine 1:200,000 50 ML MDV ONE (06:37)
[2021-06-26 06:38] LABS: CORONAVIRUS COVID-19 NAA NEGATIVE (NEGATIVE)
[2021-06-26] MEDS ORDERED: fentaNYL 100 MCG/2 ML SDV ONE ×2 (06:54→08:02)
[2021-06-26] MEDS ORDERED: Ketorolac 30 MG/ML SDV ONE ×2 (06:55→08:10)
[2021-06-26] MEDS ORDERED: ceFAZolin 2 GM in Premix Bag 1 BAG IV ONE (07:30)
[2021-06-26] MEDS ORDERED: HYDROmorphone 2 MG Tab PO PRN (09:51)
[2021-06-26 11:18] VITALS: BP 100/66; PULSE 57
--- NOTE | 2021-06-27 08:21 | OR ---
DATE OF PROCEDURE: 06/26/2021 SURGEON: Vijay Willoughby MD PREOPERATIVE DIAGNOSIS: Right inguinal hernia. POSTOPERATIVE DIAGNOSES: 1. Direct right inguinal hernia. 2. Right iliohypogastric and ilioinguinal nerves at risk for scar entrapment. OPERATIVE PROCEDURES: Right inguinal exploration with: 1. Repair of right inguinal hernia with mesh (98274). 2. Division of right iliohypogastric nerve (85098). 3. Division of right ilioinguinal nerve (29969). ANESTHESIA: Local plus IV sedation. ASSISTANTS: Ysabel Sherman PA-C and HODAN Gan INDICATIONS FOR PROCEDURE: This is a 31-year-old status post a recent onset of right inguinal hernia, has become quite painful. He has not had any episodes of incarceration per se. Plan is to proceed with an open repair of this with a mesh plug technique. Potential risks of the procedure including bleeding, infection, injury to underlying viscera, problems with the mesh becoming infected or the hernia recurring were all reviewed. We will often divide nerves passing through the area where the mesh would be placed so as to avoid postoperative neuropathic pain was gone over and the patient wishes to proceed. DETAILS OF PROCEDURE: The patient was taken to the operating room, placed in a supine position. After IV sedation was administered, the abdomen and groin areas were prepped and draped. The right inguinal area was anesthetized with 1% lidocaine mixed with Marcaine, and a standard right inguinal incision made and carried down through the skin, subcutaneous tissue, and through the external oblique aponeurosis. Subaponeurotic flaps were then raised superiorly and inferiorly. The patient was noted to have a direct hernia. The cord structures were mobilized upward and from the hernia. Inspection of the cord identified no indirect hernia standard direct hernia. At this point, the transversalis fascia over the hernia was incised allowing dissection behind the conjoint tendon where it was from the underlying peritoneum medially, superiorly, and laterally. Corby ligament was also exposed. Large mesh plug was placed into the defect and affixed initially to the Corby ligament with titanium tacking screws and then to underside of conjoint tendon again medially, laterally, and superiorly with horizontal mattress sutures of 2-0 Vicryl stitch. Once this was completed, the conjoined tendon was tacked down the shelving portion of the inguinal ligament with a running 0 Vicryl stitch. The flat portion of the mesh system was then placed across the floor, sutured lateral to the floor with a 4-0 Vicryl stitch, and then the pubic tubercle with titanium tacking screw. Prior to this, the ilioinguinal and iliohypogastric nerves were both identified and would be covered up by the flat portion of the mesh. Therefore, dissected free and divided far lateral aspect of the inguinal floor. The external oblique aponeurosis was then approximated with 4-0 Vicryl stitch as was Tam fascia and the skin closed with a 4-0 Vicryl subcuticular stitch. Dressing was applied. The patient was taken to the recovery room in satisfactory condition. Physician, Ysabel Sherman, played an essential role in assisting in this case helping to position the patient, retract structures as needed, as well as suturing and cutting sutures when indicated. Her presence improved patient safety and improved operative time. Vijay Willoughby MD /[id number]
== END 2021-06-26 11:10 | disposition home or self-care (01) ==
LOC: JP.SDS 05:41
PROVIDERS: ATTEND Surgery
DX: K40.90 Unilateral inguinal hernia, without obstruction or gangrene, not specified as recurrent (principal); F41.1 Generalized anxiety disorder; Z87.891 Personal history of nicotine dependence; Z88.1 Allergy status to other antibiotic agents; Z79.899 Other long term (current) drug therapy; Z01.812 Encounter for preprocedural laboratory examination; Z20.822 Contact with and (suspected) exposure to COVID-19
CPT/HCPCS: 0241U; 49505; A9270; C1713; C1781; J0690; J1100; J1885; J2250; J2405; J2704; J3010; J3490; J7121